=== PATIENT | female | born 1995 | race Caucasian/White ===

== ENCOUNTER 2018-07-29 10:31 | Emergency (ER) | payer OTHER ==
[2018-07-29] MEDS ORDERED: Promethazine HCl 25 MG/ML VIAL ONE ×2 (10:50→11:34)
[2018-07-29] MEDS ORDERED: Ondansetron HCl/PF 4 MG/2 ML Vial ONE ×2 (10:50→11:34)
[2018-07-29 11:05] LABS: BHCG - Serum Negative (NEGATIVE); Pregs Control Background? CLEAR/WHITE (CLR/WHITE); Pregs Control Bar Appear? YES (CONTROL BAR)
[2018-07-29 11:14] LABS: ALT (SGPT) 21 U/L (8-55); AST (SGOT) 16 U/L (5-34); Albumin 4.6 g/dL (3.5-5.0); Alkaline Phosphatase 98 U/L (40-150); Anion Gap 17 mmol/L (10-20); BUN (Urea Nitrogen) 12 mg/dL (7.0-18.7); Band 1 % (5-11); Bilirubin, Total 0.7 mg/dL (0.2-1.2); Calc. Creatinine Clearance 0 mL/min (70-130); Calcium 9.5 mg/dL (7.8-10.44); Carbon Dioxide 18 mmol/L (22-29); Chloride 109 mmol/L (98-107); Eosinophils 1 % (0-10); Estimated GFR-MDRD Greater than 90; Globulin 3.1 g/dL (2.4-3.5); Glucose 151 mg/dL (70-105); Hemoglobin 13.7 g/dL (12.0-16.0); Lipase 11 U/L (8-78); Lymphocytes 24 % (21-51); MDiff Complete? YES; Mean Corpuscular HGB CONC 32.7 g/dL (32.0-36.0); Mean Corpuscular Hemoglobin 26.7 pg (27.0-31.0); Mean Corpuscular Volume 81.8 fL (78.0-98.0); Mean Platelet Volume 9.5 fL (7.4-10.4); Monocytes 4 % (0-10); Neutrophil 69 % (42-75); PLT Morphology Comment Appears Adequate; Platelet Count 377 thou/uL (130-400); Protein, Total 7.7 g/dL (6.0-8.3); RBC Distribution Width 12.7 % (11.5-14.5); RBC Morphology Normal; Red Blood Cell (RBC) Count 5.14 mill/uL (4.20-5.40); Sodium 141 mmol/L (136-145); White Blood Cell (WBC) Count 13.1 thou/uL (4.8-10.8)
[2018-07-29] MEDS ORDERED: Potassium Chloride 20 MEQ TAB ONE (11:34)
== END 2018-07-29 12:03 | disposition home or self-care (01) ==
LOC: SCSER 10:31
DX: R11.2 Nausea with vomiting, unspecified (principal); E87.6 Hypokalemia; F41.9 Anxiety disorder, unspecified; Z79.899 Other long term (current) drug therapy
CPT/HCPCS: 80053; 83690; 84703; 85025; 96361; 96374; 96375; 96376; J2405; J2550

== ENCOUNTER 2018-07-30 11:38 | Emergency (ER) | payer OTHER ==
[2018-07-30] MEDS ORDERED: Ondansetron HCl/PF 4 MG/2 ML Vial ONE (12:01)
[2018-07-30 12:26] LABS: #Eosinphils 0.1 thou/uL (0.0-0.7); #Lymphocytes 2.7 thou/uL (1.20-3.40); #Monocytes 0.5 thou/uL (0.11-0.59); #Neutrophils 11.5 thou/uL (1.40-6.50); %Eosinophils 0.4 % (0.0-10.0); %Lymphocytes 18.1 % (21.0-51.0); %Monocytes 3.5 % (0.0-10.0); Hemoglobin 14.7 g/dL (12.0-16.0); Mean Corpuscular HGB CONC 33.5 g/dL (32.0-36.0); Mean Corpuscular Hemoglobin 27.5 pg (27.0-31.0); Mean Corpuscular Volume 82.2 fL (78.0-98.0); Mean Platelet Volume 8.4 fL (7.4-10.4); Platelet Count 515 thou/uL (130-400); Red Blood Cell (RBC) Count 5.34 mill/uL (4.20-5.40); White Blood Cell (WBC) Count 14.7 thou/uL (4.8-10.8)
[2018-07-30 12:46] LABS: ALT (SGPT) 19 U/L (8-55); AST (SGOT) 17 U/L (5-34); Albumin 5.1 g/dL (3.5-5.0); Alkaline Phosphatase 106 U/L (40-150); Anion Gap 15 mmol/L (10-20); BUN (Urea Nitrogen) 8 mg/dL (7.0-18.7); Bilirubin, Total 0.9 mg/dL (0.2-1.2); Calc. Creatinine Clearance 0 mL/min (70-130); Carbon Dioxide 20 mmol/L (22-29); Chloride 103 mmol/L (98-107); Estimated GFR-MDRD Greater than 90; Globulin 3.6 g/dL (2.4-3.5); Glucose 131 mg/dL (70-105); Lipase 14 U/L (8-78); Potassium 3.1 mmol/L (3.5-5.1); Protein, Total 8.7 g/dL (6.0-8.3); Sodium 135 mmol/L (136-145)
[2018-07-30] MEDS ORDERED: Haloperidol Lactate 5 MG/ML VIAL ONE (13:26)
[2018-07-30 13:36] LABS: BHCG - Serum Negative (NEGATIVE); Pregs Control Background? CLEAR/WHITE (CLR/WHITE); Pregs Control Bar Appear? YES (CONTROL BAR)
[2018-07-30 14:14] LABS: Bilirubin Negative (Negative); Blood, Urine Negative (Negative); Clarity CLEAR (Clear); Glucose, Urine (Dipstick) Negative (Negative); Leukocyte Negative (Negative); Nitrite Negative (Negative); Protein, Urine (Dipstick) Trace mg/dL (Neg-Trace); Specific Gravity, Urine 1.016 (1.002-1.036); pH, Urine 7.5 (5.0-9.0)
[2018-07-30 14:15] LABS: Pregnancy Test - Urine (BHCG) Negative (Negative); Pregu Control Background? CLEAR/WHITE (CLR/WHITE); Pregu Control Bar Appear? YES (CONTROL BAR); Specific Gravity 1.016 (1.002-1.036)
[2018-07-30] MEDS ORDERED: Capsaician 0.025% Cream 60 gm Tube TOP SCH (15:15)
== END 2018-07-30 15:23 | disposition home or self-care (01) ==
LOC: ERS 11:38
DX: R11.2 Nausea with vomiting, unspecified (principal); F41.9 Anxiety disorder, unspecified; Z79.01 Long term (current) use of anticoagulants; Z79.899 Other long term (current) drug therapy
CPT/HCPCS: 80053; 81003; 81025; 83690; 84703; 85025; 93005; 96361; 96374; 96375; J1630; J2405

== ENCOUNTER 2018-11-22 19:59 | Observation (INO) | payer OTHER ==
[~2018-11-22 19:59] MED LIST: ISOVUE-370 76%-LOCM 1 ML ONE
[2018-11-22] MEDS ORDERED: diphenhydrAMINE 50 MG/ML VIAL ONE (20:31)
[2018-11-22] MEDS ORDERED: Metoclopramide HCl 10 MG/2 ML VIAL ONE (20:31)
[2018-11-22 21:02] LABS: Band 4 % (5-11); Eosinophils 1 % (0-10); Lymphocytes 22 % (21-51); MDiff Complete? YES; Mean Corpuscular HGB CONC 34.1 g/dL (32.0-36.0); Mean Corpuscular Hemoglobin 27.5 pg (27.0-31.0); Mean Corpuscular Volume 80.5 fL (78.0-98.0); Mean Platelet Volume 9.3 fL (7.4-10.4); Monocytes 8 % (0-10); Neutrophil 65 % (42-75); Platelet Count 445 thou/uL (130-400); RBC Distribution Width 12.8 % (11.5-14.5); Red Blood Cell (RBC) Count 5.82 mill/uL (4.20-5.40); White Blood Cell (WBC) Count 21.7 thou/uL (4.8-10.8)
[2018-11-22 21:06] LABS: ALT (SGPT) 7 U/L (8-55); AST (SGOT) 11 U/L (5-34); Albumin 5.1 g/dL (3.5-5.0); Alkaline Phosphatase 107 U/L (40-150); Anion Gap 23 mmol/L (10-20); BUN (Urea Nitrogen) 12 mg/dL (7.0-18.7); Bilirubin, Total 1.6 mg/dL (0.2-1.2); Calc. Creatinine Clearance 0 mL/min (70-130); Calcium 10.6 mg/dL (7.8-10.44); Carbon Dioxide 23 mmol/L (22-29); Chloride 88 mmol/L (98-107); Estimated GFR-MDRD Greater than 90; Globulin 3.6 g/dL (2.4-3.5); Glucose 103 mg/dL (70-105); Lipase 27 U/L (8-78); Protein, Total 8.7 g/dL (6.0-8.3); Sodium 132 mmol/L (136-145)
[2018-11-22 21:11] LABS: Potassium 2.3 mmol/L (3.5-5.1)
[2018-11-22] MEDS ORDERED: Ondansetron PF 4 MG/2 ML Vial ONE (21:23)
[2018-11-22] MEDS ORDERED: Potassium Chloride 40 MEQ in Sodium Chloride 0.9% 250 ML 250 ML IVPB SCH (21:45)
[2018-11-22] MEDS ORDERED: Promethazine HCl 25 MG/ML VIAL ONE ×2 (21:59→23:47)
[2018-11-22 22:29] LABS: Bilirubin Negative (Negative); Blood, Urine Negative (Negative); Clarity CLEAR (Clear); Glucose, Urine (Dipstick) Negative (Negative); Leukocyte Negative (Negative); Nitrite Negative (Negative); Protein, Urine (Dipstick) Negative (Neg-Trace); Specific Gravity, Urine 1.015 (1.002-1.036); Urobilinogen 0.2 mg/dL (0.2-1.0)
[2018-11-22 22:30] LABS: Pregnancy Test - Urine (BHCG) Negative (Negative); Pregu Control Background? CLEAR/WHITE (CLR/WHITE); Pregu Control Bar Appear? YES (CONTROL BAR); Specific Gravity 1.015 (1.002-1.036)
--- NOTE | 2018-11-22 23:01 | CT ---
ABDOMEN AND PELVIC CT SCAN WITH IV CONTRAST 11/22/18 HISTORY: Diffuse abdominal pain. The lung bases are clear. There is some incidental but prominent focal fatty change in the region of the ligamentum teres. The gallbladder, pancreas, spleen, adrenal glands are unremarkable. No renal ca lculus or acute obstruction. No large or small bowel obstruction, abscess, adenopathy or abnormal fluid collection. Normal appearing appendix. Unremarkable uterus and adnexa. IMPRESSION: Unremarkable abdomen and pelvic CT scan. No evidence for significant acute process in the abdomen or pelvis. POS: [facility]
[2018-11-23] MEDS ORDERED: Acetaminophen 325 MG TAB PO PRN (00:25)
[2018-11-23 01:20] VITALS: BMI 28.6
[2018-11-23] MEDS: Ondansetron PF 4 MG/2 ML Vial IVP PRN ×3 (01:42→12:51)
[2018-11-23] MEDS: Sodium Chloride 0.9% 1,000 ML IV SCH ×3 (01:49→11:54)
--- NOTE | 2018-11-23 02:13 | HP ---
PRIMARY CARE DOCTOR: Dr. Mitchell. CODE STATUS: Full code. TIME OF EVALUATION: 11:45 p.m. CHIEF COMPLAINT: Nausea, vomiting, and diarrhea. HISTORY OF PRESENT ILLNESS: This is a 23-year-old female patient with past medical history of no significant medical problems. The patient presented with flu over the past week. She has some upper respiratory symptoms initially in the past few days. She has continued nausea, vomiting, and diarrhea. These had not stopped and the patient has been unable to hold anything down and for that reason, she presented to the ER. The symptoms are severe, likely triggered by underlying flu infection and no alleviating factors. She also was found to have very low potassium, leukocytosis, and dehydration. REVIEW OF SYSTEMS: CONSTITUTIONAL: No fever, chills, or generalized weakness. RESPIRATORY: No cough, sputum production, or shortness of breath. CARDIOVASCULAR: No chest pain or palpitation. GASTROINTESTINAL: The patient has abdominal pain. No guarding. The patient has nausea, vomiting, and occasional diarrhea; although, in the past 2 days, diarrhea had slowed down. RECEPTION AGENT: No dizziness, headache or feeling lightheaded. GENITOURINARY: No burning on urination. EXTREMITIES: No leg swelling. All other systems were reviewed and negative except for the findings mentioned above. PAST MEDICAL HISTORY: No medical problems. FAMILY HISTORY: Reviewed and non contributory to current presentation. 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 PSYCHIATRIC HISTORY: Anxiety. SOCIAL HISTORY: The patient abuse marijuana on a daily basis. No alcohol. No smoking history. KNOWN ALLERGIES: No known drug allergies reported. MEDICATIONS: None. PHYSICAL EXAMINATION: VITAL SIGNS: Blood pressure 130/95 with heart rate 115, respiratory rate 16, temperature 98.8, pain was 9/10. Oxygen saturation was 98 on room air. GENERAL APPEARANCE: The patient is alert and oriented, not in acute distress. HEENT: Eyes, normal conjunctivae. Dry oral mucosa. Anicteric. No JVD. RESPIRATORY: Bilateral air entry. No rales. No wheezes. Symmetric expansion. CARDIOVASCULAR: Normal rate, regular rhythm. No murmurs, no gallops, no edema. ABDOMEN: Tender, soft, nondistended. MUSCULOSKELETAL: Baseline range of motion and strength. No tenderness. SKIN: Warm, intact. No pallor. No rash. No redness. Peripheral pulses are present. Capillary refill seems to be intact. NEUROLOGIC: No evidence of any new focal weakness. Baseline speech. Cranial nerves seems to be intact. PSYCH: The patient is in good mood. No anxiety. Optimal judgment. CAT scan was done. CT abdomen and pelvis unremarkable. Abdomen and pelvic CT scan, no evidence of significant acute process in the abdomen or pelvis. LABORATORY DATA: Labs were reviewed. The patient has white count 21.7 with hemoglobin 16, MCV 80.5, platelet count 445. Chemistry; sodium 132, potassium 2.3, chloride 88, carbon dioxide 23, BUN 12, creatinine 0.7, GFR greater than 90, glucose 103, calcium 10.6, magnesium 2.3, total bilirubin 1.6. LFTs were normal. Urine was done, was negative except for ketones. ASSESSMENT AND PLAN: The patient will be placed in the hospital with following medical problems: 1. Acute gastroenteritis, unclear etiology, could be secondary to flu infection. The patient will be treated symptomatically. Stool cultures will be sent. CAT scan was normal. The patient did not have diarrhea for the past 2 days, so we will not start antibiotics right now. She can be reassessed in the morning. 2. The patient has leukocytosis with white count 21.7. This could be secondary to dehydration. We will hydrate the patient. We will repeat the labs. If any evidence of infection appears, we will start antibiotics. 3. Hyponatremia with sodium 132, this is likely secondary to nausea, vomiting, and lack of oral intake. We will replace electrolytes as needed. The patient is already receiving IV fluids. 4. Hypokalemia, this is moderate. Potassium 2.3. The patient is already receiving potassium replacement. We will monitor. We will treat accordingly. 5. Intractable nausea and vomiting. The patient to receive symptomatic treatment. Note: The patient has reported history of marijuana use. This could be symptoms of marijuana withdrawal. 6. Deep venous thrombosis prophylaxis. Job ID: [id number] [facility]
[2018-11-23] MEDS ORDERED: Morphine 4 MG/ML VIAL SLOW IVP PRN (03:28)
[2018-11-23] MEDS: Metoclopramide HCl 10 MG/2 ML VIAL IVP PRN ×2 (03:55→13:27)
[2018-11-23 05:36] LABS: Anion Gap 14 mmol/L (10-20); BUN (Urea Nitrogen) 6 mg/dL (7.0-18.7); Calc. Creatinine Clearance 162 mL/min (70-130); Calcium 8.5 mg/dL (7.8-10.44); Carbon Dioxide 21 mmol/L (22-29); Chloride 103 mmol/L (98-107); Estimated GFR-MDRD Greater than 90; Glucose 98 mg/dL (70-105); Potassium 2.7 mmol/L (3.5-5.1); Sodium 135 mmol/L (136-145)
[2018-11-23] MEDS ORDERED: Potassium Chloride 10 MEQ TAB PO SCH (06:15)
[2018-11-23 06:23] LABS: #Basophils 0.1 thou/uL (0.0-0.2); #Eosinphils 0.1 thou/uL (0.0-0.7); #Lymphocytes 3.3 thou/uL (1.20-3.40); #Monocytes 1.1 thou/uL (0.11-0.59); #Neutrophils 10.5 thou/uL (1.40-6.50); %Basophils 0.4 % (0.0-1.0); %Eosinophils 0.3 % (0.0-10.0); %Monocytes 7.3 % (0.0-10.0); Mean Corpuscular HGB CONC 34.1 g/dL (32.0-36.0); Mean Corpuscular Hemoglobin 27.9 pg (27.0-31.0); Mean Corpuscular Volume 81.9 fL (78.0-98.0); Mean Platelet Volume 9.3 fL (7.4-10.4); Platelet Count 329 thou/uL (130-400); RBC Distribution Width 12.8 % (11.5-14.5); Red Blood Cell (RBC) Count 4.64 mill/uL (4.20-5.40)
[2018-11-23] MEDS: Enoxaparin Sodium 40 MG/0.4 ML SYRINGE SC SCH (08:08)
[2018-11-23 08:55] LABS: Amphetamine Not Detected (NotDetected); Barbiturates Screen Not Detected (NotDetected); Benzodiazepine Screen Not Detected (NotDetected); Cocaine Metabolite Screen Not Detected (NotDetected); Medtox Control Line Valid? VALID (VALID); Medtox Reader # READER 1; Methadone Not Detected (NotDetected); Methamphetamine Not Detected (NotDetected); Opiate Screen Not Detected (NotDetected); Oxycodone Screen Not Detected (NotDetected); Phencyclidine (PCP) Not Detected (NotDetected); THC/Cannabinoid Screen Detected (NotDetected); Tricyclic Screen Not Detected (NotDetected)
[2018-11-23] MEDS: Promethazine HCl 25 MG/ML VIAL IM/IV PRN ×2 (11:50→18:29)
--- NOTE | 2018-11-23 12:05 | PDOC.PN ---
- Subjective Encounter Start Date: 11/23/18 Encounter Start Time: 11:30 Subjective: patient examined, reports reports nausea -: Denies vomiting/diarrhea today, reports epigastric/RUQ pain -: Reports GI "issues" for months, Dx with flu earlier in the week - Objective Resuscitation Status - Order Detail: 11/23/18 00:25 Resuscitation Status Routine Resuscitation Status: FULL: Full Resuscitation Vital Signs & Weight: Vital Signs (12 hours) Temp Pulse Resp BP Pulse Ox 11/23/18 07:25 98.6 F 71 15 99/56 L 96 11/23/18 03:00 98.4 F 81 16 113/69 97 11/23/18 01:07 99.4 F 86 18 138/85 96 Weight Weight 73.346 kg I&O: 11/22/18 11/23/18 11/24/18 06:59 06:59 06:59 Intake Total 1506 Output Total 800 1600 Balance 706 -1600 Result Diagrams: 11/23/18 05:06 11/23/18 05:06 Phys Exam - Physical Examination HEENT: PERRLA, moist MMs Neck: no nodes, no JVD Respiratory: no wheezing, no rales Cardiovascular: RRR, no significant murmur Gastrointestinal: no distention, positive bowel sounds RUQ/epigastric pain on palpation Neurological: non-focal, normal sensation Lymphatic: no nodes Psychiatric: normal affect, A&O x 3 Skin: normal turgor, cap refill <2 seconds Dx/Plan (1) Abdominal pain Code(s): R10.9 - UNSPECIFIED ABDOMINAL PAIN Status: Acute (2) Nausea & vomiting Code(s): R11.2 - NAUSEA WITH VOMITING, UNSPECIFIED Status: Acute (3) Hypokalemia Code(s): E87.6 - HYPOKALEMIA Status: Acute (4) Hyponatremia Code(s): E87.1 - HYPO-OSMOLALITY AND HYPONATREMIA Status: Acute (5) Diarrhea Code(s): R19.7 - DIARRHEA, UNSPECIFIED Status: Acute - Plan RUQ U/S ordered, will continue fluids and K replacement -: Ordered phenergan for nausea, not relieved with Zofran -: Clear liquids as tolerated -: Discussed case with Dr. Falcon * .
--- NOTE | 2018-11-23 15:14 | ULT ---
RIGHT UPPER QUADRANT ULTRASOUND: Date: 11/23/18 HISTORY: Right upper quadrant pain. FINDINGS: Real-time imaging of the right upper quadrant was performed. This shows a normal appearing gallbladde r. Common duct is 2.0 mm. Visualized liver parenchymal shows no focal findings. The liver is 14.0 cm in length. Right kidney is not obstructed. The pancreas is obscured. IMPRESSION: Unremarkable gallbladder ultrasound. POS: [facility]
[2018-11-23] MEDS: Potassium Chloride 20 MEQ TAB PO SCH (16:00)
[2018-11-24] MEDS: Sodium Chloride 0.9% 1,000 ML IV SCH ×2 (02:49→10:57)
[2018-11-24] MEDS: Potassium Chloride 20 MEQ TAB PO SCH ×2 (08:37→16:41)
[2018-11-24] MEDS: Enoxaparin Sodium 40 MG/0.4 ML SYRINGE SC SCH (08:37)
[2018-11-24 10:10] LABS: #Basophils 0.1 thou/uL (0.0-0.2); #Eosinphils 0.1 thou/uL (0.0-0.7); #Lymphocytes 5.9 thou/uL (1.20-3.40); #Monocytes 1.1 thou/uL (0.11-0.59); #Neutrophils 8.4 thou/uL (1.40-6.50); %Basophils 0.9 % (0.0-1.0); %Eosinophils 0.9 % (0.0-10.0); %Lymphocytes 37.5 % (21.0-51.0); %Monocytes 6.7 % (0.0-10.0); Hemoglobin 14.2 g/dL (12.0-16.0); Mean Corpuscular HGB CONC 33.3 g/dL (32.0-36.0); Mean Platelet Volume 9.4 fL (7.4-10.4); Platelet Count 314 thou/uL (130-400); RBC Distribution Width 12.8 % (11.5-14.5); Red Blood Cell (RBC) Count 5.06 mill/uL (4.20-5.40); White Blood Cell (WBC) Count 15.6 thou/uL (4.8-10.8)
[2018-11-24 10:33] LABS: ALT (SGPT) 9 U/L (8-55); AST (SGOT) 10 U/L (5-34); Albumin 4.3 g/dL (3.5-5.0); Alkaline Phosphatase 85 U/L (40-150); Anion Gap 15 mmol/L (10-20); BUN (Urea Nitrogen) 4 mg/dL (7.0-18.7); Bilirubin, Total 0.9 mg/dL (0.2-1.2); Calc. Creatinine Clearance 170 mL/min (70-130); Calcium 9.2 mg/dL (7.8-10.44); Carbon Dioxide 16 mmol/L (22-29); Chloride 106 mmol/L (98-107); Estimated GFR-MDRD Greater than 90; Globulin 2.9 g/dL (2.4-3.5); Glucose 72 mg/dL (70-105); Magnesium 2.1 mg/dL (1.6-2.6); Potassium 3.1 mmol/L (3.5-5.1); Protein, Total 7.2 g/dL (6.0-8.3); Sodium 134 mmol/L (136-145)
[2018-11-24 15:44] VITALS: BP 120/80; TEMP 98.5
--- NOTE | 2018-11-24 17:25 | DIS ---
DATE OF ADMISSION: 11/22/2018 DATE OF DISCHARGE: 11/24/2018 CHIEF COMPLAINT: Nausea, vomiting, and diarrhea. CONSULTING PHYSICIANS: None. HOSPITAL COURSE: Ms. Pinedo is a pleasant 23-year-old young woman presenting with nausea, vomiting, and diarrhea with inability to tolerate any oral intake. She had an abdominal ultrasound done that was unremarkable. CT imaging studies also done showing no acute abnormalities. She underwent initial laboratory studies that demonstrated she was hypokalemic with a potassium of 2.3. She was started on IV fluids and received IV replacement of potassium while in the ED. She was admitted to the hospital for further management. She was initially noted to have a white count of 21.7, felt to be due to the dehydration. She is in due to the vomiting and dehydration. Since then, her white blood count has been mildly raised at 15 with no clear signs or symptoms of infection. Her nausea, vomiting, and diarrhea have fully settled. She has been tolerating a clear liquid diet overnight and today, her diet was advanced to regular diet, which she tolerated well without any nausea or vomiting. Her potassium continued to be replaced orally during her stay and after an additional 40 mEq this morning, her potassium is now 3.1. She is due for another dose of 40 mEq of potassium chloride, which she will receive prior to discharge. Otherwise, laboratory studies are unremarkable. Urinalysis was done on initial presentation and negative. Toxicology did show cannabinoids in her urine. Vital signs currently are stable, and she has remained afebrile throughout her stay. REVIEW OF SYSTEMS: The patient denies having any further nausea, vomiting, or bouts of diarrhea since being admitted. Remains afebrile. Denies having any chest pain, palpitations, or shortness of breath. No cough or hemoptysis. No abdominal pain or cramping. She has moved her bowels this morning. Denies any straining, diarrhea, or blood in her stools. No skin rash or changes. All other review of systems are negative. PHYSICAL EXAMINATION: GENERAL: The patient appears well developed, well nourished, and is in no acute distress. VITAL SIGNS: Temperature 98.5, pulse 85, respirations 16, O2 saturation 97% on room air, and blood pressure 120/80. HEENT: Normocephalic and atraumatic. Pupils equal, round, and reactive to light. Sclerae are anicteric. Oropharynx is clear. NECK: Supple without lymphadenopathy. Full range of motion. LUNGS: Clear to auscultation bilaterally without any wheezes, rales, or rhonchi. CARDIAC: Regular rate and rhythm. ABDOMEN: Soft, nontender, and nondistended. Normoactive bowel sounds are present. No renal angle tenderness. EXTREMITIES: No swelling or edema. INVESTIGATIONS: As mentioned in the HPI. 1. CT of abdomen and pelvis, November 22, 2018. No evidence for significant acute process of abdomen or pelvis. Incidental prominent focal fatty change in the region of ligament of Treitz. 2. Abdominal ultrasound, November 23, 2018. Unremarkable gallbladder ultrasound. DISCHARGE MEDICATIONS: None. CONDITION: Stable at discharge. DIET: Regular diet. ACTIVITY: As tolerated. FOLLOWUP: The patient will be seen by her primary care physician this week, at which time she will undergo repeat laboratory studies to ensure her potassium remains within normal range. DISPOSITION: The patient medically cleared for discharge home today, November. The patient's case was discussed with Dr. Falcon, who agrees with the plan of care as described above. Job ID: [id number] [id number]
== END 2018-11-24 16:55 | disposition home or self-care (01) ==
LOC: ERS 19:59 → 2SW 23:20
PROVIDERS: ADMIT Hospitalist; ATTEND Hospitalist
DX: R11.2 Nausea with vomiting, unspecified (principal); E86.0 Dehydration; E87.6 Hypokalemia; F41.9 Anxiety disorder, unspecified; F12.10 Cannabis abuse, uncomplicated; K52.9 Noninfective gastroenteritis and colitis, unspecified; E87.1 Hypo-osmolality and hyponatremia
CPT/HCPCS: 36415; 51701; 74177; 76705; 80048; 80053; 80306; 81003; 81025; 82248; 83630; 83690; 83735; 85025; 87045; 87046; 87449; 87899; 94760; 96361; 96365; 96366; 96367; 96368; 96372; 96375; 96376; G0378; J1200; J1650; J2270; J2405; J2550; J2765; J3480; J7050; Q9966

== ENCOUNTER 2019-02-07 14:31 | Emergency (ER) | payer OTHER ==
[2019-02-07] MEDS ORDERED: Ondansetron ODT 4 MG TAB ONE (15:03)
[2019-02-07] MEDS ORDERED: Ondansetron PF 4 MG/2 ML Vial ONE (15:14)
[2019-02-07] MEDS ORDERED: Promethazine HCl 25 MG/ML VIAL ONE (15:21)
[2019-02-07] MEDS ORDERED: Haloperidol Lactate 5 MG/ML VIAL ONE (17:00)
== END 2019-02-07 17:37 | disposition home or self-care (01) ==
LOC: MERGE 14:31 → ERS 14:31
DX: F12.188 Cannabis abuse with other cannabis-induced disorder (principal); R11.2 Nausea with vomiting, unspecified; F41.9 Anxiety disorder, unspecified; F32.9 Major depressive disorder, single episode, unspecified
CPT/HCPCS: 96365; 96366; 96375; J1630; J2405; J2550; Q0162